=== PATIENT | male | born 1980 | race Caucasian/White ===

== ENCOUNTER 2018-06-19 09:08 | Emergency (ER) | payer OTHER, SELFPAY ==
[2018-06-19] VITALS (8 sets, daily range): BP systolic 124–142; BP diastolic 71–91; PULSE 89–111; RESP 16–19; TEMP 37.1–37.4; O2SAT 98–100
--- NOTE | 2018-06-19 09:57 | DI.RAD.S_ITS ---
PROCEDURE: XR CHEST 2V INDICATIONS: cough, fever TECHNIQUE: 2 views of the chest were acquired. COMPARISON: None. FINDINGS: Surgical changes and devices: None. Lungs and pleura: No pleural effusions or pneumothorax. Lungs are clear. Mediastinum: Mediastinal contours are normal. Heart size is normal. Bones and chest wall: No suspicious bony abnormalities. Soft tissues appear unremarkable. IMPRESSION: No acute cardiopulmonary pathology. Dictated by: Iban Snider M.D. on 06/19/2018 at 10:18 Approved by: Iban Snider M.D. on 06/19/2018 at 10:18
[2018-06-19 10:11] LABS: Add Manual Diff / Slide Review NO; Basophils Percent Auto 0.6 % (0-2); Eosinophils Percent Auto 0.3 % (2-4); Hematocrit 42.1 % (41-53); Mean Corpuscular HGB Conc 35.7 % (30-36); Mean Corpuscular Hemoglobin 31.2 PG (26-34); Mean Corpuscular Volume 87.3 fL (80-100); Monocytes Percent Auto 13.1 % (3-14); Neutrophils Absolute Auto 2100 /uL (3000-5900); Platelet Count 215 X10^3/uL (150-400); Red Blood Cell Count 4.82 X10^6/uL (4.5-5.9); Red Cell Distribution Width 12.7 % (11.6-14.8); White Blood Cell Count 3.8 X10^3/uL (4.5-11.0)
[2018-06-19 10:17] LABS: Lactate (Lactic Acid) 1.3 mmol/L (0.7-2.1)
[2018-06-19 10:21] LABS: Alanine Aminotransferase 122 IU/L (21-72); Albumin 4.8 g/dL (3.5-5.0); Albumin Globulin Ratio 1.3 (1.0-2.8); Alkaline Phosphatase 132 U/L (38-126); Aspartate Aminotransferase 65 IU/L (17-59); BUN Creatinine Ratio 17.5 (6-22); Bilirubin Total 0.7 mg/dL (0.2-1.3); Blood Urea Nitrogen 14 mg/dL (9-20); Calcium 9.8 mg/dL (8.4-10.2); Carbon Dioxide 30 mmol/L (22-32); Chloride 98 mmol/L (98-107); Estimated Glomerular Filt Rate > 60.0 mL/min (>60); Globulin 3.8 g/dL (1.7-4.1); Glucose 99 mg/dL (70-100); HEMOLYSIS < 15 (0-50); Potassium 3.7 mmol/L (3.4-5.1); Sodium 143 mmol/L (137-145); Total Protein 8.6 g/dL (6.3-8.2)
[2018-06-19 10:35] LABS: Procalcitonin < 0.05 ng/mL (<0.5)
[2018-06-19] MEDS: SODIUM CHLORIDE 0.9% 1,000 ML 1000 ML IV ×2 (10:36→14:21)
[2018-06-19 10:51] LABS: Acetaminophen < 10 ug/mL (10-30)
[2018-06-19] MEDS: CEFTRIAXONE 2 GM/50 ML FROZ.PIGGY IV (12:24)
--- NOTE | 2018-06-19 13:29 | CM.MNRNOTE ---
Multiple unsuccessful attempts at LP by Dr. Yip. She has called anesthesiology.
[2018-06-19] MEDS: KETOROLAC 60 MG/2 ML VIAL 30 MG IV (14:14)
--- NOTE | 2018-06-19 14:51 | PM.PROC.1 ---
Procedures Date/Time Date of procedure: 06/19/18 Time of procedure: 14:22 General Procedure description: Anesthesia consult for Lumbar Puncture in Emergency Department. Dr. Yip unsuccessful with her attempt. 38 yo male with recent history of persistent fever >102. Medical history and home medications reviewed. See H&P from Dr. Yip. PROCEDURE: Lumbar Puncture INDICATION: Rule out meningitis. Consent signed and time out performed pre procedure. Patient placed in left lateral decubitus position with monitors in place. IV (already established) with NS infusing. Sterile technique used throughout procedure; hat, mask and sterile gloves used. Back prepped x3 with betadine and sterile drape applied. Lidocaine 1% local with 25g needle to L2-3 interspace. 22g quinke needle entered space but unable to obtain CSF d/t encountering os. L3-4 interspace localized with 1% Lido (25g) and 22g quinke used successfully. Clear (no cloudiness), free flowing CSF obtained. Manometer applied and initial pressure reading was 22 cm H2O; the pressure settled down at 20 cm H20. A total of 4 aliquots (~1ml each) were placed in numbered containers and sent to the lab for analysis. The patient tolerated the procedure well and without complications. Further disposition and discharge instructions to be given by Dr. Yip. Complications: none
[2018-06-19 15:39] LABS: Appearance CSF Clear (Clear); CSF Tube Number 3; CSF Tube Volume 1.0 mL; Color CSF Colorless (Colorless); Red Blood Cell CSF 75 RBC /uL; White Blood Cell CSF 15 MONO/uL (0-5)
[2018-06-19 15:48] LABS: Glucose CSF 57 mg/dL (40-70); Total Protein CSF 62 mg/dL (12-60)
[2018-06-19 15:57] LABS: Appearance CSF Clear (Clear); CSF Tube Number 1; CSF Tube Volume 1.5 mL; Color CSF Colorless (Colorless)
[2018-06-19 15:58] LABS: Red Blood Cell CSF 212 RBC /uL; White Blood Cell CSF 22 MONO/uL (0-5)
[2018-06-19 17:03] LABS: Mononuclear WBC CSF 32 %; Polynuclear WBC CSF 68 %
[2018-06-19 17:04] LABS: Mononuclear WBC CSF 31 %; Polynuclear WBC CSF 69 %
[2018-06-19 17:11] LABS: Cryptococcus neoformans/gattii Not Detected (Not Detect); Enterovirus Not Detected (Not Detect); Escherichia coli K1 Not Detected (Not Detect); Haemophilus influenzae Not Detected (Not Detect); Herpes simplex virus 1 Not Detected (Not Detect); Herpes simplex virus 2 Not Detected (Not Detect); Human herpesvirus 6 Not Detected (Not Detect); Human parechovirus Not Detected (Not Detect); Listeria monocytogenes Not Detected (Not Detect); Neisseria meningitidis Not Detected (Not Detect); Streptococcus agalactiae Not Detected (Not Detect); Streptococcus pneumoniae Not Detected (Not Detect); Varicella Zoster Virus Not Detected
[2018-06-22 05:13] LABS: Acinetobacter baumannii Not Detected (Not Detect); Candida albicans Not Detected (Not Detect); Candida glabrata Not Detected (Not Detect); Candida krusei Not Detected (Not Detect); Candida parapsilosis Not Detected (Not Detect); Candida tropicalis Not Detected (Not Detect); E. coli Not Detected (Not Detect); Enterobacter cloacae complex Not Detected (Not Detect); Enterobacteriaceae species Not Detected (Not Detect); Enterococcus species Not Detected (Not Detect); Haemophilus influenzae Not Detected (Not Detect); KPC (carbapenem-resist gene) Not Detected (Not Detect); Listeria monocytogenes Not Detected (Not Detect); Methicillin-resistant gene Not Detected (Not Detect); Neisseria meningitidis Not Detected (Not Detect); Proteus species Not Detected (Not Detect); Pseudomonas aeruginosa Not Detected (Not Detect); Serratia marcescens Not Detected (Not Detect); Staphylococcus species Not Detected (Not Detect); Streptococcus agalactiae (Gr B Not Detected (Not Detect); Streptococcus pneumonia Not Detected (Not Detect); Streptococcus pyogenes (Gr A) Not Detected (Not Detect); Streptococcus species Not Detected (Not Detect); Vancomycin-rest genes A/B Not Detected (Not Detect)
--- NOTE | 2018-07-03 10:52 | ED_ITS ---
HPI - Fever General Chief Complaint: Fever Stated Complaint: NUMBNESS IN BOTH HANDS/FEVER Time Seen by Provider: 06/19/18 09:15 Source: patient Mode of arrival: ambulatory Limitations: no limitations Related Data Allergies Allergy/AdvReac Type Severity Reaction Status Date / Time No Known Drug Allergies Allergy Verified 06/19/18 10:37 Review of Systems Constitutional Reports headache(s) Eyes Denies loss of vision ENT Ears, Nose, Mouth, and Throat: Reports headache(s) Musculoskeletal Reports tingling (both hands) Neurologic Reports headache(s), Denies loss of vision and Reports tingling (both hands) PFSH Medical History Healthy adult (Acute) Social History Smoking Status: Never smoker alcohol intake: never substance use type: does not use Exam Initial Vital Signs Initial Vital Signs: Vital Signs Temperature 98.7 F 06/19/18 09:26 Pulse Rate 111 H 06/19/18 09:26 Respiratory Rate 19 06/19/18 09:26 Blood Pressure 135/91 H 06/19/18 09:26 Pulse Oximetry 99 06/19/18 09:26 Scores qSOFA Altered Mental Status (GCS <15): Yes Respiratory rate greater than/equal to 22: Yes Systolic blood pressure less than or equal to 100: Yes 0-1 Not High Risk 1-3 High risk Course Orders Ordered: ED Orders 06/19/18 09:45 Acetaminophen Stat Complete Blood Count AUTO DIFF Stat Comprehensive Metabolic Panel Stat Lactate (Lactic Acid) Stat Procalcitonin Stat 06/19/18 09:57 XR chest 2V Stat 06/19/18 10:26 Blood Culture Stat 06/19/18 13:34 CSF culture Stat 06/19/18 14:34 Cell Count w Diff CSF Stat Glucose CSF Stat Meningitis Panel Stat Total Protein CSF Stat 06/19/18 15:50 Cell Count w Diff CSF Stat Discontinued Medications Sodium Chloride (Normal Saline 0.9%) 1,000 mls @ 1,000 mls/hr IV CONT CHASE Last Infusion: 06/19/18 12:24 Dose: 0 mls/hr Admin: 06/19/18 10:36 Dose: 1,000 mls/hr Ceftriaxone Sodium/Dextrose (Rocephin) 2 gm in 50 mls @ 100 mls/hr IV NOW ONE Stop: 06/19/18 12:36 Last Infusion: 06/19/18 13:13 Dose: 0 mls/hr Admin: 06/19/18 12:24 Dose: 100 mls/hr Sodium Chloride (Normal Saline 0.9%) 1,000 mls @ 1,000 mls/hr IV BOLUS ONE Stop: 06/19/18 15:19 Last Infusion: 06/19/18 15:38 Dose: 0 mls/hr Admin: 06/19/18 14:21 Dose: 1,000 mls/hr Ketorolac Tromethamine (Toradol) 30 mg IV NOW ONE Stop: 06/19/18 14:06 Last Admin: 06/19/18 14:14 Dose: 30 mg Vital Signs - 8 hr 06/19/18 11:39 06/19/18 12:30 06/19/18 14:30 Temperature Pulse Rate 89 92 H 102 H Respiratory Rate Blood Pressure [Right Arm] 142/76 H 132/81 H 125/71 H Pulse Oximetry 100 98 99 06/19/18 14:53 06/19/18 16:00 06/19/18 16:30 Temperature 99.3 F 98.8 F Pulse Rate 98 H 95 H Respiratory Rate Blood Pressure [Right Arm] 137/75 H 124/77 H Pulse Oximetry 99 100 06/19/18 17:13 Temperature Pulse Rate 94 H Respiratory Rate 16 Blood Pressure [Right Arm] 134/74 H Pulse Oximetry 100 MDM - Fever Lab Data Result diagrams: 06/19/18 09:45 06/19/18 09:45 Lab Results 06/19/18 06/19/18 06/19/18 Range/Units 09:45 09:45 09:45 WBC 3.8 L (4.5-11.0) X10^3/uL RBC 4.82 (4.5-5.9) X10^6/uL Hgb 15.0 (13.5-17.5) g/dL Hct 42.1 (41-53) % MCV 87.3 (80-100) fL MCH 31.2 (26-34) PG MCHC 35.7 (30-36) % RDW 12.7 (11.6-14.8) % Plt Count 215 (150-400) X10^3/uL Neut % (Auto) 56.0 (50-75) % Lymph % (Auto) 30.0 (25-40) % Page % (Auto) 13.1 (3-14) % Eos % (Auto) 0.3 L (2-4) % Baso % (Auto) 0.6 (0-2) % Neut # (Auto) 2100 L (4409-8773) /uL Sodium 143 (137-145) mmol/L Potassium 3.7 (3.4-5.1) mmol/L Chloride 98 (98-107) mmol/L Carbon Dioxide 30 (22-32) mmol/L BUN 14 (9-20) mg/dL Creatinine 0.80 (0.66-1.25) mg/dL Estimated GFR > 60.0 (>60) mL/min BUN/Creatinine Ratio 17.5 (6-22) Glucose 99 (70-100) mg/dL Lactate (0.7-2.1) mmol/L Calcium 9.8 (8.4-10.2) mg/dL Total Bilirubin 0.7 (0.2-1.3) mg/dL AST 65 H (17-59) IU/L ALT 122 H (21-72) IU/L Alkaline Phosphatase 132 H (38-126) U/L Total Protein 8.6 H (6.3-8.2) g/dL Albumin 4.8 (3.5-5.0) g/dL Globulin 3.8 (1.7-4.1) g/dL Albumin/Globulin Ratio 1.3 (1.0-2.8) Procalcitonin < 0.05 (<0.5) ng/mL CSF Tube Number CSF Volume CSF Appearance (Clear) CSF Color (Colorless) CSF WBC (0-5) MONO/uL CSF RBC RBC /uL CSF Mononuclear WBCs % CSF Polynuclear WBCs % CSF Glucose (40-70) mg/dL CSF Total Protein (12-60) mg/dL CSF C.neoform/gat PCR (Not Detect) CSF CMV DNA (PCR) (Not Detect) CSF Enterovirus (PCR) (Not Detect) CSF E. coli (PCR) (Not Detect) CSF H. influenzae (PCR) (Not Detect) CSF HSV I (PCR) (Not Detect) CSF HSV II (PCR) (Not Detect) CSF HHV 6 (PCR) (Not Detect) CSF L.monocytogenes PCR (Not Detect) CSF N. meningitidis PCR (Not Detect) CSF Parechovirus (PCR) (Not Detect) CSF S. agalactiae (PCR) (Not Detect) CSF S. pneumoniae (PCR) (Not Detect) CSF VZV (PCR) Acetaminophen (10-30) ug/mL 06/19/18 06/19/18 06/19/18 Range/Units 09:45 09:45 14:34 WBC (4.5-11.0) X10^3/uL RBC (4.5-5.9) X10^6/uL Hgb (13.5-17.5) g/dL Hct (41-53) % MCV (80-100) fL MCH (26-34) PG MCHC (30-36) % RDW (11.6-14.8) % Plt Count (150-400) X10^3/uL Neut % (Auto) (50-75) % Lymph % (Auto) (25-40) % Page % (Auto) (3-14) % Eos % (Auto) (2-4) % Baso % (Auto) (0-2) % Neut # (Auto) (0449-0683) /uL Sodium (137-145) mmol/L Potassium (3.4-5.1) mmol/L Chloride (98-107) mmol/L Carbon Dioxide (22-32) mmol/L BUN (9-20) mg/dL Creatinine (0.66-1.25) mg/dL Estimated GFR (>60) mL/min BUN/Creatinine Ratio (6-22) Glucose (70-100) mg/dL Lactate 1.3 (0.7-2.1) mmol/L Calcium (8.4-10.2) mg/dL Total Bilirubin (0.2-1.3) mg/dL AST (17-59) IU/L ALT (21-72) IU/L Alkaline Phosphatase (38-126) U/L Total Protein (6.3-8.2) g/dL Albumin (3.5-5.0) g/dL Globulin (1.7-4.1) g/dL Albumin/Globulin Ratio (1.0-2.8) Procalcitonin (<0.5) ng/mL CSF Tube Number CSF Volume CSF Appearance (Clear) CSF Color (Colorless) CSF WBC (0-5) MONO/uL CSF RBC RBC /uL CSF Mononuclear WBCs % CSF Polynuclear WBCs % CSF Glucose 57 (40-70) mg/dL CSF Total Protein 62 H (12-60) mg/dL CSF C.neoform/gat PCR (Not Detect) CSF CMV DNA (PCR) (Not Detect) CSF Enterovirus (PCR) (Not Detect) CSF E. coli (PCR) (Not Detect) CSF H. influenzae (PCR) (Not Detect) CSF HSV I (PCR) (Not Detect) CSF HSV II (PCR) (Not Detect) CSF HHV 6 (PCR) (Not Detect) CSF L.monocytogenes PCR (Not Detect) CSF N. meningitidis PCR (Not Detect) CSF Parechovirus (PCR) (Not Detect) CSF S. agalactiae (PCR) (Not Detect) CSF S. pneumoniae (PCR) (Not Detect) CSF VZV (PCR) Acetaminophen < 10 L (10-30) ug/mL 06/19/18 06/19/18 06/19/18 Range/Units 14:34 14:34 15:50 WBC (4.5-11.0) X10^3/uL RBC (4.5-5.9) X10^6/uL Hgb (13.5-17.5) g/dL Hct (41-53) % MCV (80-100) fL MCH (26-34) PG MCHC (30-36) % RDW (11.6-14.8) % Plt Count (150-400) X10^3/uL Neut % (Auto) (50-75) % Lymph % (Auto) (25-40) % Page % (Auto) (3-14) % Eos % (Auto) (2-4) % Baso % (Auto) (0-2) % Neut # (Auto) (7379-5959) /uL Sodium (137-145) mmol/L Potassium (3.4-5.1) mmol/L Chloride (98-107) mmol/L Carbon Dioxide (22-32) mmol/L BUN (9-20) mg/dL Creatinine (0.66-1.25) mg/dL Estimated GFR (>60) mL/min BUN/Creatinine Ratio (6-22) Glucose (70-100) mg/dL Lactate (0.7-2.1) mmol/L Calcium (8.4-10.2) mg/dL Total Bilirubin (0.2-1.3) mg/dL AST (17-59) IU/L ALT (21-72) IU/L Alkaline Phosphatase (38-126) U/L Total Protein (6.3-8.2) g/dL Albumin (3.5-5.0) g/dL Globulin (1.7-4.1) g/dL Albumin/Globulin Ratio (1.0-2.8) Procalcitonin (<0.5) ng/mL CSF Tube Number 3 1 CSF Volume 1.0 ml 1.5 ml CSF Appearance Clear Clear (Clear) CSF Color Colorless Colorless (Colorless) CSF WBC 15 H 22 H (0-5) MONO/uL CSF RBC 75 212 RBC /uL CSF Mononuclear WBCs 32 31 % CSF Polynuclear WBCs 68 69 % CSF Glucose (40-70) mg/dL CSF Total Protein (12-60) mg/dL CSF C.neoform/gat PCR Not detected (Not Detect) CSF CMV DNA (PCR) Not detected (Not Detect) CSF Enterovirus (PCR) Not detected (Not Detect) CSF E. coli (PCR) Not detected (Not Detect) CSF H. influenzae (PCR) Not detected (Not Detect) CSF HSV I (PCR) Not detected (Not Detect) CSF HSV II (PCR) Not detected (Not Detect) CSF HHV 6 (PCR) Not detected (Not Detect) CSF L.monocytogenes PCR Not detected (Not Detect) CSF N. meningitidis PCR Not detected (Not Detect) CSF Parechovirus (PCR) Not detected (Not Detect) CSF S. agalactiae (PCR) Not detected (Not Detect) CSF S. pneumoniae (PCR) Not detected (Not Detect) CSF VZV (PCR) Not detected Acetaminophen (10-30) ug/mL Discharge Plan Departure Patient Disposition: Home Clinical Impression: Viral infection Discharge Date/Time: 06/19/18 17:23 Interventions: ED Discharge Assessment Last Done: 06/19/18 17:22 Instructions: DI for Viral Syndrome Activity Restrictions/Additional Instructions: *You have been diagnosed with viral syndrome *What to do: Fever control, increase fluids, rest, blood work spinal tap x-ray all reassuring *Continue to take medications as directed *Follow up with your primary care provider in 2-3 days *Return to ER if you should have worsening headache, persistent ongoing fever for more than 7 days, or any new, worsening or concerning symptoms
--- NOTE | 2018-07-03 10:52 | ED_ITS ---
HPI - Fever General Chief Complaint: Fever Stated Complaint: NUMBNESS IN BOTH HANDS/FEVER Time Seen by Provider: 06/19/18 09:15 Source: patient Mode of arrival: ambulatory Limitations: no limitations History of Present Illness HPI Narrative: Patient is a 39-year-old male who presents with fever and neck pain for the last 4 days. He said he has had sweats and chills off and on. 3 days ago he had a sore throat which has not returned. He continues to have some neck discomfort today he has numbness in both of his hands. He has had temperatures as high as 102. He denies any cough or chest pain no nausea vomiting abdominal pain or painful urination. He did see a chiropractor yesterday for his back in neck, he states his back is better however this neck pain is consistent. He has a mild headache. He did take Tylenol as of 1000 mg at 7:00 a.m. this morning. He has taken Tylenol 100mg 2 to 3 times over the last 4 days. He has children at home a states they each had a fever for 1-2 days and then got better. No real symptoms. MD complaint: fever and malaise Related Data Allergies Allergy/AdvReac Type Severity Reaction Status Date / Time No Known Drug Allergies Allergy Verified 06/19/18 10:37 Review of Systems Review of Systems All systems reviewed & are unremarkable except as noted in HPI and below Constitutional Reports body ache(s), Reports fatigue, Reports fever(s) and Reports headache(s) Eyes Denies change in vision, Denies eye discharge, Denies irritation and Denies loss of vision ENT Ears, Nose, Mouth, and Throat: Reports as per HPI, Reports headache(s), Reports neck pain and Reports sore throat (x 1 day now resolved) Cardiovascular Denies chest pain, Denies irregular heart rhythm, Denies lightheadedness, Denies palpitations, Denies dyspnea, Denies dyspnea on exertion and Denies orthopnea Respiratory Denies cough, Denies dyspnea, Denies dyspnea on exertion and Denies wheezing Gastrointestinal Gastrointestinal: Denies abdominal pain, Denies change in bowel habits, Denies diarrhea, Denies nausea and Denies vomiting Musculoskeletal Denies back pain, Reports neck pain and Reports tingling (both hands) Integumentary/Breasts Denies pruritus, Denies erythema, Denies rash and Denies wounds Neurologic Reports headache(s), Denies loss of vision and Reports tingling (both hands) Endocrine Reports fatigue and Denies palpitations Allergic/Immunologic Denies wheezing PFSH Medical History Healthy adult (Acute) Social History Smoking Status: Never smoker alcohol intake: never substance use type: does not use Exam Initial Vital Signs Initial Vital Signs: Vital Signs Temperature 98.7 F 06/19/18 09:26 Pulse Rate 111 H 06/19/18 09:26 Respiratory Rate 19 06/19/18 09:26 Blood Pressure 135/91 H 06/19/18 09:26 Pulse Oximetry 99 06/19/18 09:26 Const General: cooperative, healthy appearing and No ill appearing Nutritional Appearance: average body habitus HENMT Head: normal to inspection and normocephalic Throat: posterior oropharynx normal, tonsils normal and uvula midline Eyes General: appearance normal, both eyes and all related structures Neck Neck: normal visual inspection, No lymphadenopathy, positive Brudzinski's sign and positive Kernig's sign Other: Slightly stiff neck pain worse with movement Chest Chest: normal inspection of the chest Resp Effort & Inspection: normal respiratory effort, able to speak in complete sentences, no respiratory distress and no use of accessory muscles Auscultation: clear to auscultation bilaterally, no rales, no rhonchi and no wheezes Cardio Rate: regular rate Rhythm: regular rhythm Heart Sounds: no click, no gallops, no murmurs and no rubs Pulses: normal peripheral pulses GI Inspection: non-distended Palpation: soft, no hepatosplenomegaly, No guarding, No pulsatile mass and No tender Auscultation: normal bowel sounds Back/Spine/Pelvis Back: No CVA tenderness Cervical Spine: cervical ROM normal and No pain with cervical ROM Thoracic/Lumbar Spine: thoracic and lumbar spine normal to inspection Skin General: no rashes or lesions noted, No jaundice and No petechiae Neuro General: alert, oriented x3, gait normal and no focal motor deficits Speech: speech normal Extrem General: full ROM, no clubbing, cyanosis or edema, no pedal edema and no calf tenderness Procedures Lumbar Puncture Time Out Performed: Yes Patient Position: upright Skin Prep: Povidone-Iodine 1% Local Anesthetic: lidocaine 1% Amount of anesthesia used (mL): 5 Spinal Needle Gauge: 22G Interspace Used: L4-L5 Complications: Need to have other Practitioner Attempt Additional Comments: Lumbar puncture unsuccessful Course Additional Information: Lumbar puncture unsuccessful. Anesthesia has been consulted as. Will empirically treat with 2 g of Rocephin while waiting lumbar puncture. Orders Ordered: ED Orders 06/19/18 09:45 Acetaminophen Stat Complete Blood Count AUTO DIFF Stat Comprehensive Metabolic Panel Stat Lactate (Lactic Acid) Stat Procalcitonin Stat 06/19/18 09:57 XR chest 2V Stat 06/19/18 10:26 Blood Culture Stat 06/19/18 13:34 CSF culture Stat 06/19/18 14:34 Cell Count w Diff CSF Stat Glucose CSF Stat Meningitis Panel Stat Total Protein CSF Stat 06/19/18 15:50 Cell Count w Diff CSF Stat Discontinued Medications Sodium Chloride (Normal Saline 0.9%) 1,000 mls @ 1,000 mls/hr IV CONT CHASE Last Infusion: 06/19/18 12:24 Dose: 0 mls/hr Admin: 06/19/18 10:36 Dose: 1,000 mls/hr Ceftriaxone Sodium/Dextrose (Rocephin) 2 gm in 50 mls @ 100 mls/hr IV NOW ONE Stop: 06/19/18 12:36 Last Infusion: 06/19/18 13:13 Dose: 0 mls/hr Admin: 06/19/18 12:24 Dose: 100 mls/hr Sodium Chloride (Normal Saline 0.9%) 1,000 mls @ 1,000 mls/hr IV BOLUS ONE Stop: 06/19/18 15:19 Last Infusion: 06/19/18 15:38 Dose: 0 mls/hr Admin: 06/19/18 14:21 Dose: 1,000 mls/hr Ketorolac Tromethamine (Toradol) 30 mg IV NOW ONE Stop: 06/19/18 14:06 Last Admin: 06/19/18 14:14 Dose: 30 mg Consultations Consultation #1: Dr. Cunningham has been notified and consulted. Waiting for available anesthesiologist. Vital Signs - 8 hr 06/19/18 11:39 06/19/18 12:30 06/19/18 14:30 Temperature Pulse Rate 89 92 H 102 H Respiratory Rate Blood Pressure [Right Arm] 142/76 H 132/81 H 125/71 H Pulse Oximetry 100 98 99 06/19/18 14:53 06/19/18 16:00 06/19/18 16:30 Temperature 99.3 F 98.8 F Pulse Rate 98 H 95 H Respiratory Rate Blood Pressure [Right Arm] 137/75 H 124/77 H Pulse Oximetry 99 100 06/19/18 17:13 Temperature Pulse Rate 94 H Respiratory Rate 16 Blood Pressure [Right Arm] 134/74 H Pulse Oximetry 100 MDM - Fever Lab Data Attestation: I reviewed the patient's lab results. Result diagrams: 06/19/18 09:45 06/19/18 09:45 Lab Results 06/19/18 06/19/18 06/19/18 Range/Units 09:45 09:45 09:45 WBC 3.8 L (4.5-11.0) X10^3/uL RBC 4.82 (4.5-5.9) X10^6/uL Hgb 15.0 (13.5-17.5) g/dL Hct 42.1 (41-53) % MCV 87.3 (80-100) fL MCH 31.2 (26-34) PG MCHC 35.7 (30-36) % RDW 12.7 (11.6-14.8) % Plt Count 215 (150-400) X10^3/uL Neut % (Auto) 56.0 (50-75) % Lymph % (Auto) 30.0 (25-40) % Wilkinson % (Auto) 13.1 (3-14) % Eos % (Auto) 0.3 L (2-4) % Baso % (Auto) 0.6 (0-2) % Neut # (Auto) 2100 L (6488-2227) /uL Sodium 143 (137-145) mmol/L Potassium 3.7 (3.4-5.1) mmol/L Chloride 98 (98-107) mmol/L Carbon Dioxide 30 (22-32) mmol/L BUN 14 (9-20) mg/dL Creatinine 0.80 (0.66-1.25) mg/dL Estimated GFR > 60.0 (>60) mL/min BUN/Creatinine Ratio 17.5 (6-22) Glucose 99 (70-100) mg/dL Lactate (0.7-2.1) mmol/L Calcium 9.8 (8.4-10.2) mg/dL Total Bilirubin 0.7 (0.2-1.3) mg/dL AST 65 H (17-59) IU/L ALT 122 H (21-72) IU/L Alkaline Phosphatase 132 H (38-126) U/L Total Protein 8.6 H (6.3-8.2) g/dL Albumin 4.8 (3.5-5.0) g/dL Globulin 3.8 (1.7-4.1) g/dL Albumin/Globulin Ratio 1.3 (1.0-2.8) Procalcitonin < 0.05 (<0.5) ng/mL CSF Tube Number CSF Volume CSF Appearance (Clear) CSF Color (Colorless) CSF WBC (0-5) MONO/uL CSF RBC RBC /uL CSF Mononuclear WBCs % CSF Polynuclear WBCs % CSF Glucose (40-70) mg/dL CSF Total Protein (12-60) mg/dL CSF C.neoform/gat PCR (Not Detect) CSF CMV DNA (PCR) (Not Detect) CSF Enterovirus (PCR) (Not Detect) CSF E. coli (PCR) (Not Detect) CSF H. influenzae (PCR) (Not Detect) CSF HSV I (PCR) (Not Detect) CSF HSV II (PCR) (Not Detect) CSF HHV 6 (PCR) (Not Detect) CSF L.monocytogenes PCR (Not Detect) CSF N. meningitidis PCR (Not Detect) CSF Parechovirus (PCR) (Not Detect) CSF S. agalactiae (PCR) (Not Detect) CSF S. pneumoniae (PCR) (Not Detect) CSF VZV (PCR) Acetaminophen (10-30) ug/mL 06/19/18 06/19/18 06/19/18 Range/Units 09:45 09:45 14:34 WBC (4.5-11.0) X10^3/uL RBC (4.5-5.9) X10^6/uL Hgb (13.5-17.5) g/dL Hct (41-53) % MCV (80-100) fL MCH (26-34) PG MCHC (30-36) % RDW (11.6-14.8) % Plt Count (150-400) X10^3/uL Neut % (Auto) (50-75) % Lymph % (Auto) (25-40) % Wilkinson % (Auto) (3-14) % Eos % (Auto) (2-4) % Baso % (Auto) (0-2) % Neut # (Auto) (9682-9587) /uL Sodium (137-145) mmol/L Potassium (3.4-5.1) mmol/L Chloride (98-107) mmol/L Carbon Dioxide (22-32) mmol/L BUN (9-20) mg/dL Creatinine (0.66-1.25) mg/dL Estimated GFR (>60) mL/min BUN/Creatinine Ratio (6-22) Glucose (70-100) mg/dL Lactate 1.3 (0.7-2.1) mmol/L Calcium (8.4-10.2) mg/dL Total Bilirubin (0.2-1.3) mg/dL AST (17-59) IU/L ALT (21-72) IU/L Alkaline Phosphatase (38-126) U/L Total Protein (6.3-8.2) g/dL Albumin (3.5-5.0) g/dL Globulin (1.7-4.1) g/dL Albumin/Globulin Ratio (1.0-2.8) Procalcitonin (<0.5) ng/mL CSF Tube Number CSF Volume CSF Appearance (Clear) CSF Color (Colorless) CSF WBC (0-5) MONO/uL CSF RBC RBC /uL CSF Mononuclear WBCs % CSF Polynuclear WBCs % CSF Glucose 57 (40-70) mg/dL CSF Total Protein 62 H (12-60) mg/dL CSF C.neoform/gat PCR (Not Detect) CSF CMV DNA (PCR) (Not Detect) CSF Enterovirus (PCR) (Not Detect) CSF E. coli (PCR) (Not Detect) CSF H. influenzae (PCR) (Not Detect) CSF HSV I (PCR) (Not Detect) CSF HSV II (PCR) (Not Detect) CSF HHV 6 (PCR) (Not Detect) CSF L.monocytogenes PCR (Not Detect) CSF N. meningitidis PCR (Not Detect) CSF Parechovirus (PCR) (Not Detect) CSF S. agalactiae (PCR) (Not Detect) CSF S. pneumoniae (PCR) (Not Detect) CSF VZV (PCR) Acetaminophen < 10 L (10-30) ug/mL 06/19/18 06/19/18 06/19/18 Range/Units 14:34 14:34 15:50 WBC (4.5-11.0) X10^3/uL RBC (4.5-5.9) X10^6/uL Hgb (13.5-17.5) g/dL Hct (41-53) % MCV (80-100) fL MCH (26-34) PG MCHC (30-36) % RDW (11.6-14.8) % Plt Count (150-400) X10^3/uL Neut % (Auto) (50-75) % Lymph % (Auto) (25-40) % Wilkinson % (Auto) (3-14) % Eos % (Auto) (2-4) % Baso % (Auto) (0-2) % Neut # (Auto) (1567-3856) /uL Sodium (137-145) mmol/L Potassium (3.4-5.1) mmol/L Chloride (98-107) mmol/L Carbon Dioxide (22-32) mmol/L BUN (9-20) mg/dL Creatinine (0.66-1.25) mg/dL Estimated GFR (>60) mL/min BUN/Creatinine Ratio (6-22) Glucose (70-100) mg/dL Lactate (0.7-2.1) mmol/L Calcium (8.4-10.2) mg/dL Total Bilirubin (0.2-1.3) mg/dL AST (17-59) IU/L ALT (21-72) IU/L Alkaline Phosphatase (38-126) U/L Total Protein (6.3-8.2) g/dL Albumin (3.5-5.0) g/dL Globulin (1.7-4.1) g/dL Albumin/Globulin Ratio (1.0-2.8) Procalcitonin (<0.5) ng/mL CSF Tube Number 3 1 CSF Volume 1.0 ml 1.5 ml CSF Appearance Clear Clear (Clear) CSF Color Colorless Colorless (Colorless) CSF WBC 15 H 22 H (0-5) MONO/uL CSF RBC 75 212 RBC /uL CSF Mononuclear WBCs 32 31 % CSF Polynuclear WBCs 68 69 % CSF Glucose (40-70) mg/dL CSF Total Protein (12-60) mg/dL CSF C.neoform/gat PCR Not detected (Not Detect) CSF CMV DNA (PCR) Not detected (Not Detect) CSF Enterovirus (PCR) Not detected (Not Detect) CSF E. coli (PCR) Not detected (Not Detect) CSF H. influenzae (PCR) Not detected (Not Detect) CSF HSV I (PCR) Not detected (Not Detect) CSF HSV II (PCR) Not detected (Not Detect) CSF HHV 6 (PCR) Not detected (Not Detect) CSF L.monocytogenes PCR Not detected (Not Detect) CSF N. meningitidis PCR Not detected (Not Detect) CSF Parechovirus (PCR) Not detected (Not Detect) CSF S. agalactiae (PCR) Not detected (Not Detect) CSF S. pneumoniae (PCR) Not detected (Not Detect) CSF VZV (PCR) Not detected Acetaminophen (10-30) ug/mL Imaging Data Chest x-ray: Radiologist's impression: PROCEDURE: XR CHEST 2V INDICATIONS: cough, fever TECHNIQUE: 2 views of the chest were acquired. COMPARISON: None. FINDINGS: Surgical changes and devices: None. Lungs and pleura: No pleural effusions or pneumothorax. Lungs are clear. Mediastinum: Mediastinal contours are normal. Heart size is normal. Bones and chest wall: No suspicious bony abnormalities. Soft tissues appear unremarkable. IMPRESSION: No acute cardiopulmonary pathology. Dictated by: Iban Snider M.D. on 06/19/2018 at 10:18 MDM Narrative Medical decision making narrative: Patient has fever and neck pain and leukopenia. Concern for possible meningitis. Waiting for anesthesia for lumbar puncture. Empirically treated with 2 g of IV Rocephin. Patient is given Toradol for pain as which does seem to help a lot. He has been afebrile while in the ED. He overall does not appear toxic. Normal lactic acid normal procalcitonin. Meningitis panel is negative patient continues to feel well. The patient did have mildly elevated liver enzymes with no right upper quadrant pain. Tylenol level proximally 3 hr after ingestion is negative, does not sound like excessive Tylenol usage. No elevated bilirubin or right upper quadrant pain to suggest cholecystitis. Discharge Plan Departure Patient Disposition: Home Clinical Impression: Viral infection Discharge Date/Time: 06/19/18 17:23 Interventions: ED Discharge Assessment Last Done: 06/19/18 17:22 Instructions: DI for Viral Syndrome Activity Restrictions/Additional Instructions: *You have been diagnosed with viral syndrome *What to do: Fever control, increase fluids, rest, blood work spinal tap x-ray all reassuring *Continue to take medications as directed *Follow up with your primary care provider in 2-3 days *Return to ER if you should have worsening headache, persistent ongoing fever for more than 7 days, or any new, worsening or concerning symptoms
== END 2018-06-19 17:23 | disposition home or self-care (01) ==
PROVIDERS: Emergency Provider Emergency Medicine
DX: B34.9 Viral infection, unspecified (principal)
CPT/HCPCS: 36415; 36591; 62270; 71046; 80053; 80329; 82945; 83605; 84145; 84157; 85025; 87040; 87070; 87077; 87150; 87205; 87798; 89051; 96361; 96365; 96375; 99285; G0480; J0696; J1885

== ENCOUNTER → 2019-12-13 19:33 | Outpatient (CLI) | payer OTHER, SELFPAY ==
--- NOTE | 2019-12-13 19:37 | DI.MRI.S_ITS ---
PROCEDURE: MR THORACIC SPINE WO CON INDICATIONS: pain/dec ROM worsening x1 yr, failed conservative tx TECHNIQUE: Noncontrast sagittal T1 spine echo and T2 fast spin echo, sagittal STIR, axial T1 and T2 fast spin echo through the thoracic spine. COMPARISON: None. FINDINGS: Image quality: Excellent. Alignment and Curvature: There is normal bony alignment. Bone Marrow: There is a 1 cm intraosseous hemangioma in T6.. No acute vertebral body compression fractures. Spinal Cord: Visualized spinal cord is normal in size and signal. Paraspinous Soft Tissues: No paravertebral masses. Miscellaneous: There is moderate degenerative disc disease at T8-T9 with posterior central disc protrusion causing mild central canal stenosis at T8-T9. Mild posterior disc bulge at T3-T4, T10-T11 and T11-T12. IMPRESSION: 1. 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 2. Mild central canal stenosis at T8-T9. Dictated by: Alfonso Sanderson M.D. on 12/13/2019 at 21:13 Approved by: Alfonso Sanderson M.D. on 12/13/2019 at 21:18
== END ==
PROVIDERS: PCP Internal Medicine; Referring Provider Physician Assistant; Visit Provider Physician Assistant
DX: M54.9 Dorsalgia, unspecified (principal); M51.34 Other intervertebral disc degeneration, thoracic region; M48.04 Spinal stenosis, thoracic region
CPT/HCPCS: 72146

== ENCOUNTER 2023-12-19 15:24 | Emergency (ER) | payer OTHER, SELFPAY ==
[2023-12-19 15:34] VITALS: BP 144/94; PULSE 63; RESP 16; TEMP 36.2; O2SAT 98; BMI 30.2
--- NOTE | 2023-12-19 15:37 | DI.US.S_ITS ---
PROCEDURE: US SCROTUM INDICATIONS: LEFT TESTICLE PAIN TECHNIQUE: Real-time scanning was performed of the scrotum and testicles, with image documentation. Color and pulse Doppler interrogation was performed of both testicles. COMPARISON: None. FINDINGS: Right: Testicle is normal in size at 5.1 x 3.4 x 2.4 cm, and homogenous in echotexture. Epididymis is normal in overall size and morphology. Mild hydrocele. No varicoceles. Overlying scrotal skin is normal in thickness. Left: Testicle is normal in size at 4.7 x 3.2 x 2 point cm, and homogeneous in echotexture. Epididymis is normal in overall size and morphology. Mild hydrocele. No varicoceles. Overlying scrotal skin is normal in thickness. Doppler: Color and pulse Doppler demonstrate normal and symmetric arterial flow in both testicles. IMPRESSION: No sonographic signs of testicular torsion or epididymitis. Approved by: Jesus Riley M.D. on 12/19/2023 at 17:06
--- NOTE | 2023-12-19 17:35 | ED.MALEGU ---
HPI - Male Genitourinary <Destiny Zabala PA-C - Last Filed: 12/19/23 17:41> General Chief complaint: Urogenital-Male Stated complaint: painfull left testical Time Seen by Provider: 12/19/23 15:57 Source: patient Mode of arrival: Ambulatory History of Present Illness HPI Narrative: Patient is a 43-year-old male who presents with 4 days of left testicle pain. He recalls no inciting trauma or event. He denies dysuria or hematuria. The pain is constant, worse with increased activity. Today he was giving walking towards and it was really bothering him at work. It is also bad when he tries to roll over in bed. He denies any fever, abdominal pain, nausea, vomiting. He has had no diarrhea or constipation. No new sex partners. No rash or penile discharge. Patient denies history of diabetes. Related Data Home Medications Medication Instructions Recorded Confirmed paroxetine HCl 30 mg tablet 30 mg PO DAILY 12/12/19 12/12/19 Previous Rx's Medication Instructions Recorded cyclobenzaprine 10 mg tablet 10 mg PO BID #20 tabs 12/12/19 Allergies Allergy/AdvReac Type Severity Reaction Status Date / Time No Known Drug Allergies Allergy Verified 12/19/23 15:34 Review of Systems <Destiny Zabala PA-C - Last Filed: 12/19/23 17:41> Review of Systems ROS Unobtainable: All systems reviewed & are unremarkable except as noted in HPI and below Patient History <Destiny Zabala PA-C - Last Filed: 12/19/23 17:41> Medical History Back pain Healthy adult Social History Smoking Status: Never smoker alcohol intake: never substance use type: does not use Smoking Status: Never smoker alcohol intake frequency: 0-2 drinks per day Substance Use Type: does not use Exam <Destiny Zabala PA-C - Last Filed: 12/19/23 17:41> Narrative Exam Narrative: GENERAL: 43 year old patient appears stated age. Well-developed patient, in no acute distress. NEURO: AOx3. HEAD: Atraumatic. Normocephalic. EYES: Pupils equal round and reactive. Extraocular motions intact. No scleral icterus. No injection or drainage. ENT: Nose without bleeding or purulent drainage. Airway patent. RESPIRATORY: No distress. EXTREMITIES: No edema or joint tenderness. : Chaperoned by electromedical equipment technician. Normal adult male genitalia. Bilateral testes with normal lie, no overlying erythema, discoloration or edema. No exquisite tenderness to touch. No bulge or lump in the groin. No penile discharge. No tenderness to palpation over the epididymis. SKIN: No rash or erythema of visible areas Initial Vital Signs Initial Vital Signs: Vital Signs Temperature 97.1 F L 12/19/23 15:34 Pulse Rate 63 12/19/23 15:34 Respiratory Rate 16 12/19/23 15:34 Blood Pressure 144/94 H 12/19/23 15:34 Pulse Oximetry 98 12/19/23 15:34 Oxygen Delivery Method Room Air 12/19/23 15:34 <Alondra Astudillo MD - Last Filed: 12/20/23 12:46> Initial Vital Signs Initial Vital Signs: Vital Signs Temperature 97.1 F L 12/19/23 15:34 Pulse Rate 63 12/19/23 15:34 Respiratory Rate 16 12/19/23 15:34 Blood Pressure 144/94 H 12/19/23 15:34 Pulse Oximetry 98 12/19/23 15:34 Oxygen Delivery Method Room Air 12/19/23 15:34 Course <Destiny Zabala PA-C - Last Filed: 12/19/23 17:41> Orders Ordered: ED Orders 12/19/23 15:37 US scrotum Stat 12/19/23 16:02 Chlamydia Gonorrhea PCR -URINE Stat Vital Signs Vital signs: Vital Signs - 8 hr 12/19/23 15:34 Temperature 97.1 F L Pulse Rate 63 Respiratory Rate 16 Blood Pressure 144/94 H Pulse Oximetry 98 Oxygen Delivery Method Room Air <Alondar Astudillo MD - Last Filed: 12/20/23 12:46> Orders Ordered: ED Orders 12/19/23 15:37 US scrotum Stat 12/19/23 16:02 Chlamydia Gonorrhea PCR -URINE Stat Vital Signs Vital signs: Vital Signs - 8 hr 12/19/23 15:34 Temperature 97.1 F L Pulse Rate 63 Respiratory Rate 16 Blood Pressure 144/94 H Pulse Oximetry 98 Oxygen Delivery Method Room Air MDM - Male Genitourinary <Destiny Zabala PA-C - Last Filed: 12/19/23 17:41> Lab Data Labs: Lab Results 12/19/23 Range/Units 16:02 Ur Chlamydia DNA (PCR) Not detected N gonorrhoeae DNA (PCR) Not detected Urine Dip Bedside Urine Glucose Negative Bedside Urine Bilirubin - Negative Bedside Urine Ketone - Negative Urine Specific [place] 1.030 Bedside Urine Occult Blood - Negative Bedside Urine pH 6.0 Bedside Urine Protein - Negative Bedside Urine Urobilinogen - Negative Bedside Urine Nitrite - Negative Bedside Urine Leukocytes - Negative Esterase Imaging Data Scrotal ultrasound: Radiologist's Impression: PROCEDURE: US SCROTUM INDICATIONS: LEFT TESTICLE PAIN TECHNIQUE: Real-time scanning was performed of the scrotum and testicles, with image documentation. Color and pulse Doppler interrogation was performed of both testicles. COMPARISON: None. FINDINGS: Right: Testicle is normal in size at 5.1 x 3.4 x 2.4 cm, and homogenous in echotexture. Epididymis is normal in overall size and morphology. Mild hydrocele. No varicoceles. Overlying scrotal skin is normal in thickness. Left: Testicle is normal in size at 4.7 x 3.2 x 2 point cm, and homogeneous in echotexture. Epididymis is normal in overall size and morphology. Mild hydrocele. No varicoceles. Overlying scrotal skin is normal in thickness. Doppler: Color and pulse Doppler demonstrate normal and symmetric arterial flow in both testicles. IMPRESSION: No sonographic signs of testicular torsion or epididymitis. Approved by: Jesus Riley M.D. on 12/19/2023 at 17:06 [facility] Narrative Medical decision making narrative: Multiple etiologies for patient's symptoms considered including, but not limited to: Testicular torsion, epididymitis, cellulitis, STI, urinary tract infection, trauma Ultrasound without evidence of testicular torsion or epididymitis. No evidence on exam of cellulitis or rash. UA without evidence of infection. Gonorrhea chlamydia pending on urine. Shared decision-making conversation with the patient regarding treatment; offered watchful waiting versus treating with antibiotics for possible epididymitis. Patient would like watchful waiting. He does not have a primary care and I encouraged him to call in the morning to establish with a primary care so that he can follow up if this persists. Advised strict return precautions for worsening symptoms, fever, severe pain. Patient states understanding. Patient's symptoms improved over duration of stay with above-stated therapies. Findings and discharge diagnosis discussed with patient/family followed by verbalization of understanding Return precautions discussed with patient/family whom verbalize understanding of diagnosis and plan <Alondra Astudillo MD - Last Filed: 12/20/23 12:46> Lab Data Labs: Lab Results 12/19/23 Range/Units 16:02 Ur Chlamydia DNA (PCR) Not detected N gonorrhoeae DNA (PCR) Not detected Urine Dip Bedside Urine Glucose Negative Bedside Urine Bilirubin - Negative Bedside Urine Ketone - Negative Urine Specific [place] 1.030 Bedside Urine Occult Blood - Negative Bedside Urine pH 6.0 Bedside Urine Protein - Negative Bedside Urine Urobilinogen - Negative Bedside Urine Nitrite - Negative Bedside Urine Leukocytes - Negative Esterase Discharge Plan Departure Patient Disposition: Home Clinical Impression: Left testicular pain Activity Restrictions/Additional Instructions: * there is no evidence of urinary tract infection, testicular torsion, skin infection or epididymitis today. It could be that you have an early infection or you sustained strain to the area that is causing discomfort. After shared decision-making conversation, we agreed that we will wait and see. I would encourage you to establish care with a primary care provider. The phone numbers below if he would like to do this at [facility]. If you develop any severely worsening pain, pain with urination, fever, discharge from your penis or other concerning symptoms, please return to the emergency department. *What to do: *Please continue to take your regular medications as directed. [ ] New medication prescriptions sent to your pharmacy: [ ] [ ] New medication written as a paper prescription [x] No new medications given *Please follow up with your primary care provider in 2-3 days, call for an appointment. Let them know you were seen in the Emergency Department and that we ask that you be seen in follow up. We will electronically transmit a record of today's note if your PCP is in our system *If you do not have a primary care provider please contact the [facility] Resource line at [phone]. They will ask some questions about your medical history and help get you set up with a doctor in the community. *Return to Emergency Department if you should have any new, worsening or concerning symptoms, such as [fever greater than 101 F, shaking chills, worsening pain, persistent vomiting or other concerning symptoms]. Prescriptions: No Action paroxetine HCl 30 mg tablet 30 mg PO DAILY cyclobenzaprine 10 mg tablet 10 mg PO BID Qty: 20 0RF Referrals: Rishabh Oliveira MD [Primary Care Provider] - Stand Alone Forms: Patient Portal/API ED Sign-out <Alondra Astudillo MD - Last Filed: 12/20/23 12:46> Cosign ED Attending Cosignature Attestation: I was immediately available in the department for consultation throughout this patient's visit. Alondra Astudillo MD
[2023-12-19 17:42] LABS: Urine N gonorrhoeae NOT DETECTED
[2023-12-19 17:43] LABS: Urine Chlamydia NOT DETECTED
== END 2023-12-19 17:34 | disposition home or self-care (01) ==
PROVIDERS: Emergency Provider Physician Assistant; PCP Internal Medicine
DX: N50.812 Left testicular pain (principal)
CPT/HCPCS: 76870; 81003; 87491; 87591; 93975; 99283

== ENCOUNTER → 2024-01-25 09:29 | Outpatient (CLI) | payer OTHER, SELFPAY ==
--- NOTE | 2024-01-25 09:30 | DI.RAD.S_ITS ---
PROCEDURE: XR THORACIC SPINE 3V INDICATIONS: Back pain TECHNIQUE: Three views of the thoracic spine were acquired. COMPARISON: None. FINDINGS: Bones: No fractures or dislocations. Minor rightward thoracic curvature. No AP subluxation. Disc spaces are maintained. There are smooth flowing anterior osteophytes at several levels. No suspicious bony lesions. 12 pairs of ribs are noted, and appear intact where visualized. Soft tissues: No paravertebral stripe thickening. IMPRESSION: No acute bony abnormality. Osteophytosis throughout the thoracic spine without disc height loss. Dictated by: Emy Rojas M.D. on 01/25/2024 at 14:16 Approved by: Emy Rojas M.D. on 01/25/2024 at 14:18
== END ==
PROVIDERS: PCP Family Medicine; Referring Provider Family Medicine; Visit Provider Family Medicine
DX: M25.78 Osteophyte, vertebrae (principal); M54.9 Dorsalgia, unspecified
CPT/HCPCS: 72072

== ENCOUNTER → 2025-03-19 07:03 | Outpatient (CLI) | payer OTHER, SELFPAY ==
--- NOTE | 2025-03-19 07:05 | DI.US.S_ITS ---
PROCEDURE: US RENAL COMPLETE INDICATIONS: FAM HISTORY OF RENAL CELL CANCER- FATHER AND PATERNAL UNCLE TECHNIQUE: Real-time scanning was performed of the kidneys and bladder, with image documentation. COMPARISON: None. FINDINGS: Kidneys: Kidneys are normal in size. Right kidney measures 11.6 cm long; left kidney measures 12.3 cm long. Right renal cortical thickness is 1.7 cm; left renal cortical thickness is 1.8 cm. Renal cortical echotexture is normal. No hydronephrosis or nephrolithiasis. No suspicious solid mass lesions. There is a small simple cyst involving the right kidney measuring 10 mm. Bladder: Urinary bladder is unremarkable. Prevoid volume is 73 mL. Postvoid volume is 14 mL. Ureteral jets are present bilaterally. Miscellaneous: No free pelvic fluid. IMPRESSION: Normal study. Dictated by: Eric Moreno M.D. on 03/19/2025 at 15:11 Approved by: Eric Moreno M.D. on 03/19/2025 at 15:15
== END ==
PROVIDERS: PCP Family Medicine; Referring Provider Internal Medicine; Visit Provider Internal Medicine
DX: Z12.89 Encounter for screening for malignant neoplasm of other sites (principal); Z80.51 Family history of malignant neoplasm of kidney
CPT/HCPCS: 76770

== ENCOUNTER 2025-08-07 12:56 | Day surgery (SDC) | payer OTHER, SELFPAY ==
--- NOTE | 2025-08-07 | PATH_ITS ---
[facility] Accession Number: [id number] No. of containers..01 Tissue . 01 Material submitted: . colon - CECAL POLYP X2 . 01 Diagnosis: CECAL POLYP X2: Sessile serrated adenoma. Tubular adenoma. [facility] 08/20/20251335 Local . 01 Electronically signed: . Robb Priest MD, Pathologist NPI- [id number] . 01 Gross description: . Received in formalin with two identifiers and cecal polyp x2, are two pinedo soft tissue fragments 0.2 to 0.4 cm in greatest dimension. Submitted entirely in cassette A1. ([id number]) /[facility] 08/20/20251335 Local . 01 Pathologist provided ICD-10: D12.0 . 01 CPT . 692332 Specimen Comment: A courtesy copy of this report has been sent to [facility] Pathology Performed at: [address] [address], [place], [place] [id number] MD Robb Priest MD Phone: [phone]
--- NOTE | 2025-08-07 07:23 | PM.HP.IH.1 ---
History of Present Illness History of Present Illness Date Patient Seen: 08/07/25 Time Patient Seen: 07:23 Chief complaint: Colonoscopy Narrative: 45yo M presents for screening colonoscopy today. [facility] Medical History (Updated 08/07/25 @ 07:23 by Alessio Deleon MD) Tinnitus (~2015) Hypertension (~2013) Anxiety (~2013) Back pain Family History (Updated 01/26/24 @ 20:39 by Neeru Paula) Grandfather Brain aneurysm Grandmother Bladder cancer Social History marital status: number of children: 3 household members: spouse and children lives independently: Yes occupational status: employed (Civilian admin contractor [place] alcohol intake: never substance use type: does not use Meds Home Medications and Allergies Home Medications ?Medication ?Instructions ?Recorded ?Confirmed ?Type cyclobenzaprine 10 mg tablet 10 mg PO BID #20 tabs 12/12/19 09/11/24 Rx paroxetine HCl 30 mg tablet 30 mg PO DAILY 12/12/19 09/11/24 History cholecalciferol (vitamin D3) 125 125 mcg PO DAILY 01/17/24 09/11/24 History mcg (5,000 unit) capsule etodolac 400 mg tablet 400 mg PO .PRN 01/17/24 09/11/24 History famotidine 20 mg tablet 20 mg PO DAILY 01/17/24 09/11/24 History losartan 25 mg tablet 25 mg PO BID 01/17/24 09/11/24 History testosterone enanthate 200 mg/mL 180 mg IM QWEEK 01/17/24 09/11/24 History intramuscular oil vit B complex 100 combo no.2 100 tab PO 01/17/24 09/11/24 History mg tablet,extended release (B-100 Complex ER) ketoconazole 2 % topical cream See Rx Instructions topical BID 09/11/24 09/11/24 Rx #30 grams sodium,potassium,mag sulfates 17.5 See Rx Instructions PO .COMPLEX 06/30/25 Rx gram-3.13 gram-1.6 gram oral soln #354 mL (Suprep Bowel Prep Kit) Allergies Allergy/AdvReac Type Severity Reaction Status Date / Time No Known Drug Allergies Allergy Verified 09/11/24 09:17 Exam Narrative Exam Narrative: Const General: healthy appearing, comfortable and no acute distress Orientation: alert and oriented x3 HENMT Ears: hearing grossly normal bilaterally Eyes Visual Hauser: normal visual hauser by confrontation Conjunctivae: conjunctivae normal Sclera: sclerae normal EOM: EOM intact bilaterally Resp Effort & Inspection: normal respiratory effort and able to speak in complete sentences Cardio Rate: regular rate GI Palpation: soft (NT) Extrem General: no pedal edema and no calf tenderness Assessment & Plan Assessment and plan (1) Encounter for screening colonoscopy: Status: Acute Plan Plan screening colonoscopy, possible polypectomy. The risks, benefits and options regarding the procedure were explained to the patient in detail. Risk discussion included but not limited to: bleeding, perforation, unable to reach cecum, missed lesion. The patient was encouraged to ask questions and they were answered to their satisfaction. The patient understands and is agreeable to proceed. Time-Based Coding :: [TOTAL MINUTES] spent with patient and on the chart (including review of chart, obtaining history, exam, reviewing outside data, placing orders, documenting exam and treatment plan, and counseling patient) on [DATE]. [employer] Document charge(s): Yes Charge Codes Inpatient/observation care including admit and discharge same day: [id number]
[2025-08-07 13:21] VITALS: BP 137/80; PULSE 68; RESP 15; TEMP 36.3; O2SAT 95
--- NOTE | 2025-08-07 14:05 | P.OP.COLON_ITS ---
Operative Date/Time/Diagnoses Date of procedure: 08/07/25 Time of procedure: 14:39 Pre-op diagnosis: Screening colonoscopy Post-op diagnosis: other (Cecal polyps x 2) Procedure & Clinicians Study performed: Screening colonoscopy with polypectomy Same procedure(s) as scheduled: Yes Indications: 45yo M, screening colonoscopy Surgeon: Alessio Deleon Anesthesia Type: MAC +/- Procedure Notes SCOAP/Timeout: Performed Procedure in detail: Colonoscopy Patient placed in left lateral recumbent position. Time out was performed. Procedural sedation was administered by anesthesia. Examination began with a thorough inspection of the perianal area. There was no evidence of fissures, fistulae, external hemorrhoids or cutaneous malignancy. The colonoscope was then placed into the rectum and the lumen was insufflated with carbon dioxide. The scope was carefully advanced forward. Ultimately the cecum was intubated and confirmed by identification of the ileocecal valve, the appendiceal orifice and the confluence of the taenia. The scope was then slowly withdrawn examining the colon thoroughly in all directions. In the rectum, retroflexion of the scope was performed for inspection of the distal rectum and anal canal. ?Significant colonoscopy findings: ?1. Quality of the preparation-good, [place] 2-3, improved with irrigation/suction ?2. Two small sessile, 3mm benign appearing polyps in cecum, removed with cold snare and retrieved for pathology Scope withdrawal time: 8 minutes Findings: polyp(s) Specimen(s): other (polyps) Complications: none Impression: Cecal polyps Post-procedure Recommendations: Colonoscopy in 10 years Plan for aftercare: PACU then home Follow up: as needed Disposition: PACU
[2025-08-07 14:37] VITALS: BP 102/56; PULSE 70; RESP 8; TEMP 36.2; O2SAT 95
[2025-08-07 14:40] VITALS: BP 94/56; PULSE 76; RESP 16; O2SAT 92
[2025-08-07 14:46] VITALS: BP 121/76; PULSE 82; RESP 16; TEMP 37.1; O2SAT 96
== END 2025-08-07 15:07 | disposition home or self-care (01) ==
PROVIDERS: PCP Family Medicine; Referring Provider Family Medicine; Visit Provider Surgery
PROC: 0DJD8ZZ Inspection of Lower Intestinal Tract, Via Natural or Artificial Opening Endoscopic (ICD-10-PCS; CPT 45378; principal; 2025-08-07 14:30)
DX: Z12.11 Encounter for screening for malignant neoplasm of colon (principal); D12.0 Benign neoplasm of cecum
CPT/HCPCS: 45385; J2704

== ENCOUNTER 2025-09-27 14:06 | Emergency (ER) | payer OTHER, SELFPAY ==
[2025-09-27 14:18] VITALS: BP 138/83; PULSE 65; RESP 18; TEMP 37.1; O2SAT 98; BMI 30.2
--- NOTE | 2025-09-27 14:25 | DI.RAD.S_ITS ---
PROCEDURE: XR WRIST LT MIN 3V INDICATIONS: left wrist pain TECHNIQUE: 4 views of the wrist were acquired. COMPARISON: None. FINDINGS: Bones: No fractures or dislocations. No suspicious bony lesions. Soft tissues: No suspicious soft tissue calcifications. IMPRESSION: No acute bony abnormality. Dictated by: Brent Garza M.D. on 09/27/2025 at 14:31 Approved by: Brent Garza M.D. on 09/27/2025 at 14:31
--- NOTE | 2025-09-27 15:45 | ED.UPPEXIN ---
HPI - Extremity Injury (Upper) General Chief Complaint: Extremity Injury, Upper Stated Complaint: LT wrist injury Time Seen by Provider: 09/27/25 14:35 Source: patient Mode of arrival: Ambulatory History of Present Illness HPI narrative: 45-year-old male here today for a left wrist injury. States he was using a rotating saw and it got jammed and kicked back causing his left wrist to twist sharply. He felt immediate pain. He presented to this ED soon after the injury to make sure it isn't broken. He states any twisting motion is painful. He has a wrist brace from home that helps it to feel a bit better. No medication taken so far. Denies a fall or direct impact on the area Related Data Home Medications ?Medication ?Instructions ?Recorded ?Confirmed paroxetine HCl 30 mg tablet 30 mg PO DAILY 12/12/19 08/07/25 cholecalciferol (vitamin D3) 125 125 mcg PO DAILY 01/17/24 09/11/24 mcg (5,000 unit) capsule etodolac 400 mg tablet 400 mg PO .PRN 01/17/24 08/07/25 famotidine 20 mg tablet 20 mg PO DAILY 01/17/24 08/07/25 losartan 25 mg tablet 25 mg PO BID 01/17/24 08/07/25 testosterone enanthate 200 mg/mL 180 mg IM QWEEK 01/17/24 08/07/25 intramuscular oil vit B complex 100 combo no.2 100 tab PO 01/17/24 09/11/24 mg tablet,extended release (B-100 Complex ER) fluoxetine 40 mg capsule 40 mg PO DAILY 08/07/25 08/07/25 losartan 100 mg tablet 100 mg PO DAILY 08/07/25 08/07/25 Previous Rx's ?Medication ?Instructions ?Recorded ketoconazole 2 % topical cream See Rx Instructions topical BID 09/11/24 #30 grams sodium,potassium,mag sulfates 17.5 See Rx Instructions PO .COMPLEX 06/30/25 gram-3.13 gram-1.6 gram oral soln #354 mL (Suprep Bowel Prep Kit) Allergies Allergy/AdvReac Type Severity Reaction Status Date / Time No Known Drug Allergies Allergy Verified 08/07/25 13:14 Review of Systems Review of Systems ROS Unobtainable: All systems reviewed & are unremarkable except as noted in HPI and below Patient History Medical History (Updated 09/27/25 @ 15:55 by Twyla Nur PA-C) Tinnitus (~2015) Hypertension (~2013) Anxiety (~2013) Back pain Family History (Updated 01/26/24 @ 20:39 by Neeru Paula) Grandfather Brain aneurysm Grandmother Bladder cancer Social History marital status: number of children: 3 household members: spouse and children lives independently: Yes occupational status: employed ([employer] [place] alcohol intake: never substance use type: does not use Smoking Status: Never smoker alcohol intake frequency: 0-2 drinks per day Exam Narrative Exam Narrative: GENERAL: [45] year old patient appears stated age. Well-developed patient, in no acute distress. HEAD: Atraumatic. Normocephalic. EYES: Pupils equal round and reactive. Extraocular motions intact. No scleral icterus. No injection or drainage. ENT: Nose without bleeding, purulent drainage. Throat without erythema, tonsillar hypertrophy or exudate. Airway patent. NECK: Trachea midline. Non tender RESPIRATORY: Respiratory rate and effort normal EXTREMITIES: Left wrist with swelling present over the distal ulna. No pinpoint tenderness, just mild generalized tenderness of the area. Good flexion and extension but limited rotation due to discomfort. Able to make a fist with normal strength and sensation. No tenderness of the forearm and elbow. BACK: Nontender without deformity or crepitus. No flank tenderness. NEURO: AOx3. SKIN: No rash or erythema of visible areas Initial Vital Signs Initial Vital Signs: Vital Signs Temperature 98.8 F 09/27/25 14:18 Pulse Rate 65 09/27/25 14:18 Respiratory Rate 18 09/27/25 14:18 Blood Pressure 138/83 09/27/25 14:18 Pulse Oximetry 98 09/27/25 14:18 Oxygen Delivery Method Room Air 09/27/25 14:18 Course Orders Ordered: ED Orders 09/27/25 14:25 XR wrist LT min 3V Stat Vital Signs Vital signs: Vital Signs - 8 hr 09/27/25 14:18 Temperature 98.8 F Pulse Rate 65 Respiratory Rate 18 Blood Pressure 138/83 Pulse Oximetry 98 Oxygen Delivery Method Room Air MDM - Extremity Injury (Upper) Imaging Data Extremity x-ray #1: Radiologist's Impression: [address] [address] XRay Report Signed Patient: Doris Bee MR#: [id number] : 1980 Acct:[id number] Age/Sex: 45 / M Date of Service: 09/27/25 Loc: ED Accession Number: [id number] Procedure: XR wrist LT min 3V Ordering Provider: Nic Alonzo MD PROCEDURE: XR WRIST LT MIN 3V INDICATIONS: left wrist pain TECHNIQUE: 4 views of the wrist were acquired. COMPARISON: None. FINDINGS: Bones: No fractures or dislocations. No suspicious bony lesions. Soft tissues: No suspicious soft tissue calcifications. IMPRESSION: No acute bony abnormality. Dictated by: Brent Garza M.D. on 09/27/2025 at 14:31 Approved by: Brent Garza M.D. on 09/27/2025 at 14:31 [facility] Narrative Medical decision making narrative: Differential includes sprain, fracture, ligament injury X-ray negative for fracture. His mechanism of injury is more consistent with a sprain as well. He already has the appropriate wrist brace that he brought from home so I encouraged him to continue wearing that and to take ibuprofen 600 mg Q 6-8 hours for the next 3-5 days. Continue icing the area. After the next 2-3 days he can gently work on range of motion of the wrist. Recommend that if his pain is persistent past 7-10 days that he follow up with PCP to have re-evaluation. Discharge Plan Departure Patient Disposition: Home Clinical Impression: Sprain and strain of left wrist Instructions: DI for Wrist Sprain Activity Restrictions/Additional Instructions: Thank you for choosing us to care for you today. Your x-ray of the left wrist shows no broken bones or other abnormalities. This means you likely sustained a sprain of your left wrist. Continue wearing the brace on your wrist day and night for the next several days while also taking ibuprofen 600 mg every 6-8 hours. After a few days you should take the brace off occasionally and gently move around your wrist to work on its range of motion. Wear the brace until your pain has resolved and you are able to complete your daily living activities without pain. If you continue to have persistent pain after 7-10 days please follow up with your PCP to re-evaluate. Prescriptions: No Action paroxetine HCl 30 mg tablet 30 mg PO DAILY etodolac 400 mg tablet 400 mg PO .PRN famotidine 20 mg tablet 20 mg PO DAILY losartan 25 mg tablet 25 mg PO BID B-100 Complex 100 mg tablet extended release PO cholecalciferol (vitamin D3) 125 mcg (5,000 unit) capsule 125 mcg PO DAILY testosterone enanthate 200 mg/mL oil 180 mg IM QWEEK Patient Comments: Rx Instructions: testosterone 200 mg-anastrozole 1 mg/mL, inject 0.9 mL subQ weekly ketoconazole 2 % cream See Rx Instructions topical BID Qty: 30 0RF Rx Instructions: 1mg toppically bid TOP BID sodium,potassium,mag sulfates [Suprep Bowel Prep Kit] 17.5-3.13-1.6 gram recon soln See Rx Instructions PO .COMPLEX Qty: 354 0RF Rx Instructions: As prescribed by Provider losartan 100 mg tablet 100 mg PO DAILY fluoxetine 40 mg capsule 40 mg PO DAILY Referrals: Jerry Wright MD [Primary Care Provider, Family Practice] Stand Alone Forms: Patient Portal/API
[2025-09-27 15:59] VITALS: BP 143/87; PULSE 64; RESP 17; O2SAT 99
== END 2025-09-27 16:05 | disposition home or self-care (01) ==
PROVIDERS: Emergency Provider Physician Assistant; PCP Family Medicine
DX: S63.592A Other specified sprain of left wrist, initial encounter (principal); M25.532 Pain in left wrist; W31.2XXA Contact with powered woodworking and forming machines, initial encounter
CPT/HCPCS: 73110; 99281